=== PATIENT | female | born 1970 | race Caucasian/White ===

== ENCOUNTER 2017-08-14 09:17 | Outpatient (CLI) | payer BC ==
--- NOTE | 2017-09-03 10:46 | MMO ---
SCREENING MAMMOGRAPHY: Date: 08-14-17 Comparison: 03-26-15, 04-19-10 History: Screening mammogram. FINDINGS: This study is interpreted with the assistance of computer aided detection. Scattered fibroglandular densities are present. No dominant mass or architectural distortion. No conc erning microcalcifications are seen. IMPRESSION: BIRADS 1 - negative. Recommend annual screening mammography. POS: [facility]
== END 2017-08-14 09:18 | disposition home or self-care (01) ==
LOC: SCSMAMMO 09:17
PROVIDERS: ATTEND Family Medicine
DX: Z12.31 Encounter for screening mammogram for malignant neoplasm of breast (principal)
CPT/HCPCS: 77067; G0202

== ENCOUNTER 2017-11-07 10:24 | Outpatient (CLI) | payer BC | END 2017-11-07 10:25 | disposition home or self-care (01) | LOC: CTENTCT 10:24 | PROVIDERS: ATTEND Specialist | DX: J32.8 Other chronic sinusitis (principal) | CPT/HCPCS: 70486 ==

== ENCOUNTER 2020-06-04 14:28 | Outpatient (CLI) | payer BC ==
--- NOTE | 2020-06-04 14:59 | MMO ---
Bilateral MAMMO Bilat Screen [facility]. CLINICAL HISTORY: Patient is 50 years old and is seen for screening. The patient has no family history of breast cancer. The patient has no personal history of cancer. VIEWS: The views performed were: bilateral craniocaudal with tomosynthesis and bilateral mediolateral oblique with tomosynthesis. FILMS COMPARED: The present examination has been compared to prior imaging studies performed at [facility] on 08/14/2017, and at [facility] on 04/19/2010 and 03/26/2015. This study has been interpreted with the assistance of computer-aided detection. MAMMOGRAM FINDINGS: The breasts are heterogeneously dense, which could obscure a lesion on mammography. There are no suspicious masses, suspicious calcifications, or new areas of architectural distortion. IMPRESSION: THERE IS NO MAMMOGRAPHIC EVIDENCE OF MALIGNANCY. A ROUTINE FOLLOW-UP MAMMOGRAM IN 1 YEAR IS RECOMMENDED. THE RESULTS OF THIS EXAM WERE SENT TO THE PATIENT. ACR BI-RADS Category 1 - Negative MAMMOGRAPHY NOTE: 1. A negative mammogram report should not delay a biopsy if a dominant of clinically suspicious mass is present. 2. Approximately 10% to 15% of breast cancers are not detected by mammography. 3. Adenosis and dense breasts may obscure an underlying neoplasm. Reported by: FELIPE HINSON MD Electonically Signed: [id number]
== END 2020-06-04 14:29 | disposition home or self-care (01) ==
LOC: BICMAMMO 14:28
PROVIDERS: ATTEND Family Medicine
DX: Z12.31 Encounter for screening mammogram for malignant neoplasm of breast (principal)
CPT/HCPCS: 77063; 77067